=== PATIENT | male | born 1970 | race Caucasian/White ===

== ENCOUNTER 2020-05-27 04:44 | Emergency (ER) | payer OTHER ==
[2020-05-27] MEDS ORDERED: Sodium Chloride 0.9% 1000 ML 1,000 ML ONE (05:01)
[2020-05-27] MEDS ORDERED: TORAdol 30 mg Injection ONE (05:04)
[2020-05-27] MEDS ORDERED: Zofran 4 MG/2 ML VIAL IV ONE (05:04)
[2020-05-27] MEDS ORDERED: MORPHINE SULFATE 4 MG INJ IV ONE (05:04)
[2020-05-27] MEDS ORDERED: Sodium Chloride 0.9% 1000 ML 1,000 ML IV STA (05:04)
[2020-05-27] MEDS ORDERED: MORPHINE SULFATE 4 MG INJ ONE (05:04)
[2020-05-27] MEDS ORDERED: TORAdol 30 mg Injection IV ONE (05:04)
[2020-05-27] MEDS ORDERED: Zofran 4 MG/2 ML VIAL ONE (05:04)
--- NOTE | 2020-05-27 05:09 | ERPHSYRPT ---
- History of Present Illness Time Seen by Provider: 05/27/20 05:00 Historian: patient Exam Limitations: no limitations Patient Subjective Stated Complaint: left flank pain that began last night and radiates to LLQ and left testicle; pt has hx of kidney stone Triage Nursing Assessment: a/ox4; resp labored and tachypneic; skin p/w/d; restless Physician History: 50 years old male presented in the ER with chief complaint of sudden onset left flank pain level since last night, moderate to severe intensity, radiating to l eft lower quadrant and testicle without any swelling of testicle, unable to obtain a comfortable spot. Associated with severe nausea but no vomiting. Patient also report mild difficulty urination but no dysuria or hematuria. Does have history of kidney stones in the past with similar symptoms. Denies any fever or chills. Timing/Duration: yesterday, sudden, worse Activities at Onset: rest Quality: sharpness Abdominal Pain Onset Location: flank Pain Radiation: LLQ Severity of Pain-Max: severe Severity of Pain-Current: severe Modifying Factors: Improves With: movement, palpation Associated Symptoms: nausea, No vomiting Previous symptoms: same symptoms as today Allergies/Adverse Reactions: iodine Allergy (Intermediate, Verified 07/18/13 22:19) Home Medications: Amphet Asp/Amphet/D-Amphet [Adderall 30 mg Tablet] 1 tab BID 05/27/20 [History] Atorvastatin Calcium 1 tab DAILY 05/27/20 [History] Gabapentin 1 cap PO TID 05/27/20 [History] Tramadol HCl 50 mg [Ultram 50 mg] 1 tab TID 05/27/20 [History] Zolpidem Tartrate [Zolpidem Tartrate ER] 1 tab HS PRN PRN 05/27/20 [History] Hx Tetanus, Diphtheria Vaccination/Date Given: No Hx Influenza Vaccination/Date Given: No Hx Pneumococcal Vaccination/Date Given: Yes Immunizations Up to Date: Yes Travel Risk - International Travel Have you traveled outside of the country in past 3 weeks: No - Coronavirus Screening Are you exhibiting any of the following symptoms?: No Close contact with a COVID-19 positive Pt in past 14-21 Days: No - Review of Systems Constitutional: No Symptoms Eyes: No Symptoms Ears, Nose, & Throat: No Symptoms Respiratory: No Symptoms Cardiac: No Symptoms Abdominal/Gastrointestinal: Abdominal Pain, Nausea Genitourinary Symptoms: Hesitancy, Flank Pain, Testicle Pain Musculoskeletal: No Symptoms Skin: No Symptoms Neurological: No Symptoms Psychological: No Symptoms Endocrine: No Symptoms Hematologic/Lymphatic: No Symptoms Immunological/Allergic: No Symptoms - Past Medical History Pertinent Past Medical History: Yes Neurological History: No Pertinent History ENT History: No Pertinent History Cardiac History: High Cholesterol Respiratory History: No Pertinent History Endocrine Medical History: No Pertinent History Musculoskeletal History: Arthritis GI Medical History: No Pertinent History History: Other Psycho-Social History: Depression Male Reproductive Disorders: No Pertinent History Other Medical History: kidney stones; spinal stenosis - Past Surgical History Past Surgical History: Yes Neuro Surgical History: No Pertinent History Cardiac: No Pertinent History Respiratory: No Pertinent History Gastrointestinal: Hernia Repair, Other Genitourinary: No Pertinent History Musculoskeletal: Other Male Surgical History: Vasectomy Other Surgical History: GASTRIC BY-PASS; left knee repair - Social History Smoking Status: Never smoker Exposure to second hand smoke: No Drug Use: none Patient Lives Alone: Yes - Nursing Vital Signs Nursing Vital Signs: Initial Vital Signs Pulse Rate 63 05/27/20 04:47 Respiratory Rate 24 05/27/20 04:47 Blood Pressure 150/89 05/27/20 04:47 O2 Sat by Pulse Oximetry 100 05/27/20 04:47 Pain Scale Pain Intensity 2 - Physical Exam General Appearance: no apparent distress Eye Exam: PERRL/EOMI Ears, Nose, Throat Exam: normal ENT inspection, pharynx normal Neck Exam: normal inspection, non-tender, supple, full range of motion Respiratory Exam: normal breath sounds, lungs clear Cardiovascular Exam: regular rate/rhythm, normal heart sounds Gastrointestinal/Abdomen Exam: soft, tenderness (Left flank/left lower quadrant), guarding Back Exam: normal inspection, CVA tenderness Extremity Exam: normal inspection, normal range of motion, pelvis stable Neurologic Exam: alert, oriented x 3, cooperative Skin Exam: normal color SpO2 Interpretation: normal SpO2: 100 O2 Delivery: Room Air Ordered Tests: Active Orders 24 hr Category Date Time Status IV Insertion STAT Care 05/27/20 05:04 Active NPO (ED) STAT Care 05/27/20 05:04 Active ABDOMEN AND PELVIS W/0 CONTRAS [CT] Stat Exams 05/27/20 05:05 Taken CBC W DIFF Stat Lab 05/27/20 05:04 Completed CMP Stat Lab 05/27/20 05:04 Completed LIPASE Stat Lab 05/27/20 05:04 Completed UA W/RFX UR CULTURE Stat Lab 05/27/20 05:11 Completed Medication Summary Discontinued Medications Generic Name Dose Route Start Last Admin Trade Name Jhoan PRN Reason Stop Dose Admin Sodium Chloride Confirm 05/27/20 05:01 Sodium Chloride 0.9% 1000 Ml Administered 05/27/20 05:02 Dose 1,000 mls @ ud .ROUTE .STK-MED ONE Sodium Chloride 1,000 mls @ 999 mls/hr 05/27/20 05:04 05/27/20 05:17 Sodium Chloride 0.9% 1000 Ml IV 05/27/20 06:04 999 mls/hr .Q1H1M STA Administration Ketorolac Tromethamine Confirm 05/27/20 05:04 Toradol 30 Mg Injection Administered 05/27/20 05:05 Dose 30 mg .ROUTE .STK-MED ONE Ketorolac Tromethamine 30 mg 05/27/20 05:04 05/27/20 05:17 Toradol 30 Mg Injection IV 05/27/20 05:05 30 mg STAT ONE Administration Morphine Sulfate Confirm 05/27/20 05:04 Morphine Sulfate 4 Mg Inj Administered 05/27/20 05:05 Dose 4 mg .ROUTE .STK-MED ONE Morphine Sulfate 4 mg 05/27/20 05:04 05/27/20 05:16 Morphine Sulfate 4 Mg Inj IV 05/27/20 05:05 4 mg STAT ONE Administration Ondansetron HCl Confirm 05/27/20 05:04 Zofran 4 Mg/2 Ml Vial Administered 05/27/20 05:05 Dose 4 mg .ROUTE .STK-MED ONE Ondansetron HCl 4 mg 05/27/20 05:04 05/27/20 05:17 Zofran 4 Mg/2 Ml Vial IV 05/27/20 05:05 4 mg STAT ONE Administration Lab/Rad Data: Laboratory Result Diagrams 05/27/20 05:04 05/27/20 05:04 Laboratory Results 05/27/20 05/27/20 05/27/20 Range/Units 05:11 05:04 05:04 WBC 10.7 H (4.0-10.5) K/mm3 RBC 4.76 (4.1-5.6) M/mm3 Hgb 13.3 (12.5-18.0) gm/dl Hct 41.0 L (42-50) % MCV 86.1 (78-100) fl MCH 27.9 (26-32) pg MCHC 32.4 (32-36) g/dl RDW 13.8 (11.5-14.0) % Plt Count 268 (150-450) K/mm3 MPV 9.4 (7.5-11.0) fl Gran % 46.8 (36.0-66.0) % Eos # (Auto) 0.14 (0-0.5) Absolute Lymphs (auto) 4.28 (1.0-4.6) Absolute Monos (auto) 1.20 (0.0-1.3) Lymphocytes % 40.2 (24.0-44.0) % Monocytes % 11.3 (0.0-12.0) % Eosinophils % 1.3 (0.00-5.0) % Basophils % 0.4 (0.0-0.4) % Absolute Granulocytes 4.99 (1.4-6.9) Basophils # 0.04 (0-0.4) Sodium 140 (137-145) mmol/L Potassium 4.0 (3.5-5.1) mmol/L Chloride 108 H (98-107) mmol/L Carbon Dioxide 21 L (22-30) mmol/L Anion Gap 14.5 (5-15) MEQ/L BUN 16 (9-20) mg/dL Creatinine 1.04 (0.66-1.25) mg/dL Estimated GFR > 60.0 ML/MIN Glucose 104 (74-106) mg/dL Calcium 8.7 (8.4-10.2) mg/dL Total Bilirubin 0.50 (0.2-1.3) mg/dL AST 27 (17-59) U/L ALT 22 (0-50) U/L Alkaline Phosphatase 73 (38-126) U/L Serum Total Protein 7.3 (6.3-8.2) g/dL Albumin 4.4 (3.5-5.0) g/dL Lipase 146 (23-300) U/L Urine Color YELLOW (YELLOW) Urine Appearance CLEAR (CLEAR) Urine pH 7.0 (5-6) Ur Specific [place] 1.018 (1.005-1.025) Urine Protein NEGATIVE (Negative) Urine Ketones NEGATIVE (NEGATIVE) Urine Blood NEGATIVE (0-5) Jeff/ul Urine Nitrite NEGATIVE (NEGATIVE) Urine Bilirubin NEGATIVE (NEGATIVE) Urine Urobilinogen 2 (0-1) mg/dL Ur Leukocyte Esterase NEGATIVE (NEGATIVE) Urine WBC (Auto) NONE (0-5) /HPF Urine RBC (Auto) NONE (0-2) /HPF U Epithel Cells (Auto) NONE (FEW) /HPF Urine Bacteria (Auto) NONE (NEGATIVE) /HPF Urine Culture Reflexed NO (NO) Urine Glucose NEGATIVE (NEGATIVE) mg/dL - Progress Progress: improved, pain not gone completely, re-examined Counseled pt/family regarding: diagnosis, need for follow-up, rad results - Departure Departure Disposition: Home Clinical Impression: Ureterolithiasis Condition: Stable Critical Care Time: No Referrals: DOCTOR,NO FAMILY [NON-STAFF PHY W/O PRIVILEGES] - ABIGAIL MARINA [ACTIVE STAFF] - (1-2 DAYS FOR RE EVALUATION) JALEEL JARVIS [COURTESY STAFF] - (1-2 DAYS FOR RE EVALUATION) Instructions: Kidney Stones (DC) Additional Instructions: Drink plenty of fluids. Take pain medications as needed. Follow-up with primary care and urology for reevaluation. Return to ER for intractable pain, nausea vomiting/fever or chills.
[2020-05-27 05:18] LABS: Absolute Neutrophil Ct (ANC) 4.99 (1.4-6.9); BASOPHIL % 0.4 % (0.0-0.4); Basophil (Absolute #) 0.04 (0-0.4); Eosinophil % 1.3 % (0.00-5.0); Eosinophil (Absolute #) 0.14 (0-0.5); Hemoglobin 13.3 gm/dl (12.5-18.0); Lymphocyte (Absolute #) 4.28 (1.0-4.6); Lymphocytes % 40.2 % (24.0-44.0); Mean Cell Volume 86.1 fl (78-100); Mean Corpuscular Hemoglobin 27.9 pg (26-32); Mean Corpuscular Hgb Concent. 32.4 g/dl (32-36); Mean Platelet Volume 9.4 fl (7.5-11.0); Monocytes % 11.3 % (0.0-12.0); Neutrophil % 46.8 % (36.0-66.0); Platelet Count 268 K/mm3 (150-450); Red Blood Count 4.76 M/mm3 (4.1-5.6); Red Cell Distribution Width 13.8 % (11.5-14.0); White Blood Count 10.7 K/mm3 (4.0-10.5)
[2020-05-27 05:21] LABS: Appearance CLEAR (CLEAR); Bilirubin NEGATIVE (NEGATIVE); Blood NEGATIVE Ery/ul (0-5); Glucose NEGATIVE (NEGATIVE); Ketones NEGATIVE (NEGATIVE); Leukocyte Esterase NEGATIVE (NEGATIVE); Nitrite NEGATIVE (NEGATIVE); Protein,Urine Dip NEGATIVE (Negative); Specific Gravity 1.018 (1.005-1.025); Urobilinogen 2 mg/dL (0-1)
[2020-05-27 05:34] LABS: ALBUMIN 4.4 g/dL (3.5-5.0); ALKALINE PHOSPHATASE 73 U/L (38-126); ANION GAP 14.5 MEQ/L (5-15); BLOOD UREA NITROGEN 16 mg/dL (9-20); CHLORIDE 108 mmol/L (98-107); Calcium 8.7 mg/dL (8.4-10.2); Carbon Dioxide 21 mmol/L (22-30); Creatinine 1 1.04 mg/dL (0.66-1.25); Glucose 104 mg/dL (74-106); LIPASE 146 U/L (23-300); SGOT/AST 27 U/L (17-59); SGPT/ALT 22 U/L (0-50); SODIUM 140 mmol/L (137-145); Total Protein 7.3 g/dL (6.3-8.2)
[2020-05-27 06:09] VITALS: BP 142/86; PULSE 62
[2020-05-27 06:15] VITALS: O2SAT 100
[2020-05-27] MEDS ORDERED: Flomax 0.4 MG ONE (06:20)
--- NOTE | 2020-05-27 07:05 | XRAY ---
Indication: Left flank pain. Multiple contiguous axial images obtained through the abdomen and pelvis without contrast as ordered. Comparison: CT renal stone study July 18, 2013. Lung bases are clear. Heart is not enlarged. Again previous gastric bypass surgery. Noncontrasted stomach and bowel loops remain nonobstructed. Normal air-filled appendix. There is again mild diffuse scattered colonic fecal debris throughout more than before. New 3 mm left urinary bladder calculus. Left ureter is mildly prominent along with mild left hydronephrosis consistent with recent passage of said calculus. Right kidney demonstrates 2 nonobstructing microcalculi, largest 3 mm. Remaining liver, gallbladder, pancreas, spleen, adrenal glands, kidneys, ureters, bladder, and aorta appear unremarkable for noncontrast exam. Osseous structures intact again with mild degenerative changes throughout the thoracolumbar spine. Stable small fatty umbilical hernia. Impression: 1. New 3 mm left urinary bladder calculus with mild left hydronephrosis and mild left hydroureter. 2 nonobstructing right renal microcalculi. 2. Again mild diffuse fecal stasis and fatty umbilical hernia. Comment: Preliminary interpretation was made by [facility]. No critical discrepancy.
[2020-05-27] MEDS ORDERED: Flomax 0.4 MG PO SCH (10:00)
== END 2020-05-27 06:33 ==
LOC: ED 04:44
DX: N20.1 Calculus of ureter (principal); R10.32 Left lower quadrant pain
CPT/HCPCS: 36000; 36415; 74176; 80053; 81001; 83690; 85025; 96360; 96374; 96375; 99284; J1885; J2270; J2405; A9270-GY